=== PATIENT | female | born 1975 | race Caucasian/White ===

== ENCOUNTER 2017-11-19 08:03 | Emergency (ER) | payer OTHER ==
[2017-11-19 08:13] VITALS: RESP 18
[2017-11-19] MEDS ORDERED: PROMETHAZ-COD 6.25-10 MG/5 ML 5 ML CUP PO STA (08:23)
[2017-11-19] MEDS ORDERED: IBUPROFEN 600 MG TAB PO STA (08:23)
--- NOTE | 2017-11-19 08:26 | ED ---
URI HPI - General Chief Complaint: Upper Respiratory Infection Stated Complaint: FEVER, MULTIPLE SYMP Time Seen by Provider: 11/19/17 08:15 Source: patient, RN notes reviewed, old records reviewed Mode of arrival: ambulatory Limitations: no limitations - History of Present Illness Initial Comments: 42-year-old female presents today chief complaint of upper respiratory congestion for the past 4 days. She reports she's had a high fever. She has been alternating Motrin Tylenol taking TheraFlu. Patient reports that she now has a productive cough. She reports it's green-yellow sputum. She denies any wheezing. She is a smoker. Patient states that she's had Motrin at 4 AM. She denies any specific abdominal pain, nausea or. She did have one episode of vomiting earlier today due to her productive cough and sputum. Patient denies any urinary symptoms, vision changes, headache, peripheral paresthesias, back pain. - Related Data Home Medications Medication Instructions Recorded Confirmed Omeprazole 40 mg PO DAILY 11/19/17 11/19/17 Previous Rx's Medication Instructions Recorded Amoxic-Pot Clav 875-125Mg 1 tab PO Q12HR #20 tablet 11/19/17 [Augmentin 875-125] Promethazine/Dextromethorphan 5 ml PO TID #120 ml 11/19/17 [Phenergan DM Syrup] Allergies Allergy/AdvReac Type Severity Reaction Status Date / Time No Known Allergies Allergy Verified 11/19/17 08:32 Review of Systems ROS Statement: Those systems with pertinent positive or pertinent negative responses have been documented in the HPI. ROS Other: All systems not noted in ROS Statement are negative. Past Medical History Past Medical History: No Reported History History of Any Multi-Drug Resistant Organisms: None Reported Past Surgical History: Cholecystectomy, Tonsillectomy Additional Past Surgical History / Comment(s): tubal ligation Past Psychological History: Depression Smoking Status: Current every day smoker Past Alcohol Use History: Occasional Past Drug Use History: None Reported General Exam - General Exam Comments Initial Comments: 42-year-old female. Limitations: no limitations General appearance: alert, in no apparent distress Head exam: Present: atraumatic, normocephalic, normal inspection Eye exam: Present: normal appearance, PERRL, EOMI. Absent: scleral icterus, conjunctival injection, periorbital swelling ENT exam: Present: normal exam, mucous membranes moist. Absent: normal oropharynx (erythematours oropharynx, no exudate), TM's normal bilaterally ( Patient has erythematous scared right TM) Neck exam: Present: normal inspection, full ROM. Absent: tenderness, meningismus, lymphadenopathy Respiratory exam: Present: normal lung sounds bilaterally. Absent: respiratory distress, wheezes, rales, rhonchi, stridor Cardiovascular Exam: Present: regular rate, normal rhythm, normal heart sounds. Absent: systolic murmur, diastolic murmur, rubs, gallop, clicks GI/Abdominal exam: Present: soft, normal bowel sounds. Absent: distended, tenderness, guarding, rebound, rigid Extremities exam: Present: normal inspection, full ROM Back exam: Present: normal inspection, full ROM. Absent: CVA tenderness (L) Neurological exam: Present: alert, oriented X3, CN II-XII intact Psychiatric exam: Present: normal affect, normal mood Skin exam: Present: warm, dry, intact, normal color. Absent: rash Course Vital Signs 11/19/17 11/19/17 11/19/17 08:09 08:45 09:55 Temperature 99.5 F 98.1 F Pulse Rate 99 82 Respiratory 18 18 18 Rate Blood Pressure 123/83 127/63 O2 Sat by Pulse 97 96 Oximetry Medical Decision Making - Medical Decision Making 42-year-old female presents today chief complaint of upper respiratory congestion for the past 4 days. She reports she's had a high fever. She has been alternating Motrin Tylenol taking TheraFlu. Patient reports that she now has a productive cough. She reports it's green-yellow sputum. Patient influenza testing is negative. Lungs are clear, no wheezing. Minimal redness to oropharynx. Paitent has sinus congestion. Patient CXR is normal. Patient informed likely sinusitis upper respiratory infection. Started on augmentin for sinusitis. Dsicussed follow up with PCP and continue OTC medication and supportive measure. Given note for work. - Lab Data Lab Results 11/19/17 Range/Units 08:33 Influenza Type A RNA Not Detected (Not Detectd) Influenza Type B (PCR) Not Detected (Not Detectd) - Radiology Data Radiology results: report reviewed CXR reviewed and normal, no acute abnormalities. Disposition Clinical Impression: Upper respiratory infection Disposition: HOME SELF-CARE Condition: Good Instructions: Upper Respiratory Infection (ED) Additional Instructions: Patient has a follow-up with primary care provider. Return to emergency department if any alarming signs or symptoms occur. Take antibiotic as prescribed. Prescriptions: Amoxic-Pot Clav 875-125Mg [Augmentin 875-125] 1 tab PO Q12HR #20 tablet Promethazine/Dextromethorphan [Phenergan DM Syrup] 5 ml PO TID #120 ml Referrals: Víctor Rosario Jr, DO [Primary Care Provider] - 1-2 days Time of Disposition: 09:44
--- NOTE | 2017-11-19 09:39 | XR ---
EXAMINATION TYPE: XR chest 2V DATE OF EXAM: 11/19/2017 HISTORY: Pain. REFERENCE: Previous study dated 12/06/2012. FINDINGS: The lungs remain clear. Pleural spaces are clear. The heart is not enlarged. IMPRESSION: NORMAL CHEST.
[2017-11-19] MEDS ORDERED: MAG HYDROX/AL HYDROX/SIMETH 30 ML, HYOSCYAMINE ELIXIR 10 ML, CIMETIDINE HCL 300 MG PO STA ×3 (09:49)
[2017-11-19 10:06] VITALS: BP 127/63; PULSE 82; TEMP 98.1
== END 2017-11-19 10:12 | disposition home or self-care (01) ==
LOC: EC 08:03
DX: J06.9 Acute upper respiratory infection, unspecified (principal); F17.200 Nicotine dependence, unspecified, uncomplicated; Z90.89 Acquired absence of other organs; Z79.899 Other long term (current) drug therapy
CPT/HCPCS: 71046; 87502; 99284

== ENCOUNTER 2019-12-27 11:01 | Emergency (ER) | payer OTHER ==
[2019-12-27 11:21] VITALS: RESP 18
--- NOTE | 2019-12-27 12:30 | ED ---
Lower Extremity Injury HPI - General Chief Complaint: Extremity Injury, Lower Stated Complaint: injured ankle Time Seen by Provider: 12/27/19 11:32 Source: patient, RN notes reviewed Mode of arrival: wheelchair Limitations: no limitations - History of Present Illness Initial Comments: 44-year-old female presents emergency Department chief complaint of left foot and ankle pain. Patient states that her foot Wrapped up in her dog states that she fell. She states she wrapped applied ice and take some Motrin today with worsening pain. No prior fractures. Denies any head injury no loss conscious. - Related Data Home Medications Medication Instructions Recorded Confirmed Omeprazole 40 mg PO DAILY 11/19/17 11/19/17 Previous Rx's Medication Instructions Recorded Amoxic-Pot Clav 875-125Mg 1 tab PO Q12HR #20 tablet 11/19/17 [Augmentin 875-125] Promethazine/Dextromethorphan 5 ml PO TID #120 ml 11/19/17 [Phenergan DM Syrup] Allergies Allergy/AdvReac Type Severity Reaction Status Date / Time No Known Allergies Allergy Verified 12/27/19 11:18 Review of Systems ROS Statement: Those systems with pertinent positive or pertinent negative responses have been documented in the HPI. ROS Other: All systems not noted in ROS Statement are negative. Past Medical History Past Medical History: No Reported History History of Any Multi-Drug Resistant Organisms: None Reported Past Surgical History: Cholecystectomy, Tonsillectomy Additional Past Surgical History / Comment(s): tubal ligation Past Psychological History: Depression Smoking Status: Current every day smoker Past Alcohol Use History: Occasional Past Drug Use History: None Reported General Exam Limitations: no limitations General appearance: alert, in no apparent distress Head exam: Present: atraumatic, normocephalic, normal inspection Eye exam: Present: normal appearance, PERRL, EOMI. Absent: scleral icterus, conjunctival injection, periorbital swelling ENT exam: Present: normal exam, normal oropharynx, mucous membranes moist, TM's normal bilaterally Neck exam: Present: normal inspection, full ROM. Absent: tenderness, meningismus, lymphadenopathy Respiratory exam: Present: normal lung sounds bilaterally. Absent: respiratory distress, wheezes, rales, rhonchi, stridor Cardiovascular Exam: Present: regular rate, normal rhythm, normal heart sounds. Absent: systolic murmur, diastolic murmur, rubs, gallop, clicks Extremities exam: Present: other (Left foot, lateral malleoli region there is ecchymosis, swelling and tenderness with palpation neurovascular intact no proximal tib-fib tenderness) Course Vital Signs 12/27/19 11:18 Temperature 97.8 F Pulse Rate 86 Respiratory 18 Rate Blood Pressure 127/88 O2 Sat by Pulse 98 Oximetry Procedures - Orthopedic Splinting/Casting Injury #1 Side: left Lower Extremity Injury Location: short leg, ankle Lower Extremity Immobilizer: posterior splint, synthetic pre-padded splint Medical Decision Making - Medical Decision Making Patient x-ray shows evidence of avulsion fracture. Patient was splinted and will follow-up with orthopedics. Disposition Clinical Impression: Fracture of distal end of left tibia Disposition: HOME SELF-CARE Condition: Stable Instructions (If sedation given, give patient instructions): Ankle Fracture (ED) Additional Instructions: Please return to the Emergency Department if symptoms worsen or any other concerns. Is patient prescribed a controlled substance at d/c from ED?: No Referrals: Víctor Rosario Jr, DO [Primary Care Provider] - 1-2 days Dima Mcintyre MD [Medical Doctor] - 1-2 days Time of Disposition: 13:31
--- NOTE | 2019-12-27 12:48 | XR ---
EXAMINATION TYPE: XR foot complete LT DATE OF EXAM: 12/27/2019 CLINICAL HISTORY: Left foot pain after fall TECHNIQUE: Frontal, lateral, and oblique images of the left foot are obtained. COMPARISON: None FINDINGS: There is no acute fracture/dislocation evident in the left foot. The joint spaces in the left foot appear within normal limits. The overlying soft tissue appears unremarkable. Incidentally noted os naviculare. IMPRESSION: There is no acute fracture or dislocation in the left foot.
--- NOTE | 2019-12-27 12:48 | XR ---
EXAMINATION TYPE: XR ankle complete LT DATE OF EXAM: 12/27/2019 COMPARISON: NONE HISTORY: Pain FINDINGS: Three views of the ankle demonstrate the ankle mortise to be intact and symmetric. There is an avulsi on fracture of the medial malleolus. Soft tissue edema noted. IMPRESSION: 1. Tiny avulsion fracture medial malleolus
[2019-12-27 13:47] VITALS: BP 122/78; PULSE 83; TEMP 97
== END 2019-12-27 13:47 | disposition home or self-care (01) ==
LOC: EC 11:01
DX: S82.302A Unspecified fracture of lower end of left tibia, initial encounter for closed fracture (principal); F17.200 Nicotine dependence, unspecified, uncomplicated; Z90.49 Acquired absence of other specified parts of digestive tract; Z79.899 Other long term (current) drug therapy; W10.9XXA Fall (on) (from) unspecified stairs and steps, initial encounter
CPT/HCPCS: 29515; 99283

== ENCOUNTER → 2021-06-04 | Outpatient (CLI) | payer OTHER ==
--- NOTE | 2021-06-05 11:04 | MM ---
Reason for exam: screening (asymptomatic). Last mammogram was performed 6 years and 11 months ago. History: Family history of breast cancer in maternal cousin at age 52. Physical Findings: A clinical breast exam by your physician is recommended on an annual basis and results should be correlated with mammographic findings. MG Screening Mammo w CAD Bilateral CC and MLO view(s) were taken. Prior study comparison: June 24, 2014, bilateral MG screening mammo w CAD. There are scattered fibroglandular densities. ASSESSMENT: Negative, BI-RAD 1 RECOMMENDATION: Routine screening mammogram of both breasts in 1 year.
== END | disposition home or self-care (01) ==
LOC: RADMAMWWP 09:18
PROVIDERS: ATTEND Family Medicine
DX: Z12.31 Encounter for screening mammogram for malignant neoplasm of breast (principal); Z80.3 Family history of malignant neoplasm of breast
CPT/HCPCS: 77067

== ENCOUNTER 2022-09-03 17:33 | Emergency (ER) | payer OTHER ==
[2022-09-03 17:44] VITALS: BP 130/65; PULSE 83; RESP 16; TEMP 98.1
[2022-09-03] MEDS ORDERED: DEXAMETHASONE SOD PHOSPHATE 10 MG/ML 1 ML VIAL IM STA (17:58)
--- NOTE | 2022-09-03 18:05 | ED ---
General Adult HPI - General Chief complaint: Allergic Reaction Stated complaint: hives, facial swelling Time Seen by Provider: 09/03/22 17:53 Source: patient, RN notes reviewed, old records reviewed Mode of arrival: ambulatory Limitations: no limitations - History of Present Illness Initial comments: 47-year-old female with 24 hours of itchy raised rash and lip swelling. Patient states she had coronavirus about 2 weeks ago. She has no difficulty breathing. No fever. No cough. No vomiting. Patient denies any new medications, no new foods, no attributable new cause of this rash. - Related Data Home Medications Medication Instructions Recorded Confirmed Omeprazole 40 mg PO DAILY 11/19/17 11/19/17 Previous Rx's Medication Instructions Recorded Amoxic-Pot Clav 875-125Mg 1 tab PO Q12HR #20 tablet 11/19/17 [Augmentin 875-125] Promethazine/Dextromethorphan 5 ml PO TID #120 ml 11/19/17 [Phenergan DM Syrup] diphenhydrAMINE [Benadryl] 25 mg PO TID PRN #21 capsule 09/03/22 methylPREDNISolone Dose Pack 4 mg PO DIRECTED #21 packet 09/03/22 [Medrol Dose Pack] Allergies Allergy/AdvReac Type Severity Reaction Status Date / Time No Known Allergies Allergy Verified 12/27/19 11:18 Review of Systems ROS Statement: Those systems with pertinent positive or pertinent negative responses have been documented in the HPI. ROS Other: All systems not noted in ROS Statement are negative. Past Medical History Past Medical History: No Reported History History of Any Multi-Drug Resistant Organisms: None Reported Past Surgical History: Cholecystectomy, Tonsillectomy Additional Past Surgical History / Comment(s): tubal ligation Past Psychological History: Depression Past Alcohol Use History: Occasional Past Drug Use History: None Reported General Exam Limitations: no limitations General appearance: alert, in no apparent distress Head exam: Present: atraumatic, normocephalic Eye exam: Present: normal appearance, PERRL ENT exam: Present: normal oropharynx, mucous membranes moist, other (mild soft tissue swelling of the upper and lower lips. No tongue swelling, no uvular swelling normal oropharynx) Respiratory exam: Present: normal lung sounds bilaterally. Absent: respiratory distress Cardiovascular Exam: Present: regular rate, normal rhythm GI/Abdominal exam: Absent: distended, tenderness Extremities exam: Present: normal inspection, normal capillary refill Neurological exam: Present: alert, oriented X3, CN II-XII intact. Absent: motor sensory deficit Skin exam: Present: warm, dry, urticaria (diffuse urticarial rash) Course Vital Signs 09/03/22 17:42 Temperature 98.1 F Pulse Rate 83 Respiratory 16 Rate Blood Pressure 130/65 O2 Sat by Pulse 98 Oximetry Medical Decision Making - Medical Decision Making 47-year-old female with urticarial rash and mild lip swelling. No tongue swelling, no uvular swelling. She is not currently on any medications. She is well-appearing with clear lungs, no respirator distress, no vomiting. She is started on Decadron and will be prescribed Medrol Dosepak as well as Benadryl. She will monitor her symptoms closely and return with any worsening or changing symptoms. Disposition Clinical Impression: Allergic reaction, Urticaria Disposition: HOME SELF-CARE Condition: Good Instructions (If sedation given, give patient instructions): Urticaria (ED) Prescriptions: diphenhydrAMINE [Benadryl] 25 mg PO TID PRN #21 capsule PRN Reason: Rash methylPREDNISolone Dose Pack [Medrol Dose Pack] 4 mg PO DIRECTED #21 packet Is patient prescribed a controlled substance at d/c from ED?: No Referrals: Víctor Rosario Jr, DO [Primary Care Provider] - 1-2 days Time of Disposition: 18:04
== END 2022-09-03 18:48 | disposition home or self-care (01) ==
LOC: EC 17:33
DX: L50.0 Allergic urticaria (principal)
CPT/HCPCS: 99283; J1100

== ENCOUNTER 2024-04-24 08:31 | Emergency (ER) | payer OTHER ==
--- NOTE | 2024-04-24 08:48 | ED ---
General Adult HPI - General Chief complaint: Back Pain/Injury Stated complaint: fall-rib pain Time Seen by Provider: 04/24/24 08:36 Source: patient, family, RN notes reviewed Mode of arrival: ambulatory Limitations: no limitations - History of Present Illness Initial comments: Patient is a 49-year-old female present to the emergency department with left- sided rib pain. Patient did have a fall 1 week ago. Patient has had discomfort since that time. Patient denies dyspnea. Patient is able to breathe normally. Patient states discomfort is increased with movement. Discomfort is left lower ribs. No midline back pain. No head injury or loss of consciousness. No neck pain. No abdominal pain. Patient states she slipped on a step and fell back wards onto the step. - Related Data Home Medications Medication Instructions Recorded Confirmed Omeprazole 40 mg PO DAILY 11/19/17 11/19/17 Previous Rx's Medication Instructions Recorded Amoxic-Pot Clav 875-125Mg 1 tab PO Q12HR #20 tablet 11/19/17 [Augmentin 875-125] Promethazine/Dextromethorphan 5 ml PO TID #120 ml 11/19/17 [Phenergan DM Syrup] diphenhydrAMINE [Benadryl] 25 mg PO TID PRN #21 capsule 09/03/22 methylPREDNISolone Dose Pack 4 mg PO DIRECTED #21 packet 09/03/22 [Medrol Dose Pack] Cyclobenzaprine [Flexeril] 10 mg PO TID PRN #12 tablet 04/24/24 Ibuprofen [Motrin] 600 mg PO Q6HR PRN #20 tab 04/24/24 Allergies Allergy/AdvReac Type Severity Reaction Status Date / Time No Known Allergies Allergy Verified 04/24/24 08:35 Review of Systems ROS Statement: Those systems with pertinent positive or pertinent negative responses have been documented in the HPI. ROS Other: All systems not noted in ROS Statement are negative. Constitutional: Denies: fever Eyes: Denies: eye pain ENT: Denies: ear pain Respiratory: Reports: as per HPI. Denies: dyspnea Endocrine: Denies: fatigue Gastrointestinal: Denies: abdominal pain Past Medical History Past Medical History: No Reported History History of Any Multi-Drug Resistant Organisms: None Reported Past Surgical History: Cholecystectomy, Tonsillectomy Additional Past Surgical History / Comment(s): tubal ligation Past Psychological History: Depression Smoking Status: Current every day smoker Past Alcohol Use History: Daily Past Drug Use History: Marijuana General Exam Limitations: no limitations General appearance: alert Head exam: Present: normocephalic Eye exam: Present: normal appearance Neck exam: Present: normal inspection. Absent: tenderness Respiratory exam: Present: normal lung sounds bilaterally, chest wall tenderness (Left posterior lateral lower ribs) Cardiovascular Exam: Present: regular rate, normal rhythm GI/Abdominal exam: Present: soft. Absent: tenderness Extremities exam: Present: normal inspection Back exam: Present: tenderness (Left lateral lower posterior rib). Absent: vertebral tenderness Neurological exam: Present: alert Psychiatric exam: Present: normal affect, normal mood Skin exam: Present: normal color Course Vital Signs 04/24/24 04/24/24 08:32 09:35 Temperature 97.4 F L 98.2 F Pulse Rate 80 71 Respiratory 16 18 Rate Blood Pressure 186/100 177/90 O2 Sat by Pulse 96 99 Oximetry Medical Decision Making - Medical Decision Making Was pt. sent in by a medical professional or institution (, PA, [employer], urgent care, hospital, or [facility]...) When possible be specific @ -No Did you speak to anyone other than the patient for history (EMS, parent, family, police, friend...)? What history was obtained from this source @ -No Did you review nursing and triage notes (agree or disagree)? Why? @ -I reviewed and agree with nursing and triage notes Were old charts reviewed (outside hosp., previous admission, EMS record, old EKG, old radiological studies, urgent care reports/EKG's, [facility] records)? Report findings @ -No old charts were reviewed Differential Diagnosis (chest pain, altered mental status, abdominal pain women, abdominal pain men, vaginal bleeding, weakness, fever, dyspnea, syncope, headache, dizziness, GI bleed, back pain, seizure, CVA, palpatations, mental health, musculoskeletal)? @ -Differential Back Pain: Strain, zoster, cauda equina syndrome, epidural abscess, vertebral osteomyelitis, discitis, fracture, subluxation, disc herniation, DJD, spinal stenosis, dissection, AAA, pancreatitis, peptic ulcer disease, pyelonephritis, kidney stone, this is not meant to be an all-inclusive list. EKG interpreted by me (3pts min.). @ -As above X-rays interpreted by me (1pt min.). @ -Chest x-ray and left-sided rib x-rays do not reveal obvious fracture or pneumothorax CT interpreted by me (1pt min.). @ -None done U/S interpreted by me (1pt. min.). @ -None done What testing was considered but not performed or refused? (CT, X-rays, U/S, labs)? Why? @ -None What meds were considered but not given or refused? Why? @ -None Did you discuss the management of the patient with other professionals (professionals i.e. DrKyrie, PA, [employer], lab, RT, psych nurse, vp digital marketing social media and crm, mesmerist, teacher, electronic intelligence officer, casework specialist)? Give summary @ -No Was smoking cessation discussed for >3mins.? @ -No Was critical care preformed (if so, how long)? @ -No Were there social determinants of health that impacted care today? How? (Homelessness, low income, unemployed, alcoholism, drug addiction, transportation, low edu. Level, literacy, decrease access to med. care, longterm, rehab)? @ -No Was there de-escalation of care discussed even if they declined (Discuss DNR or withdrawal of care, Hospice)? DNR status @ -No What co-morbidities impacted this encounter? (DM, HTN, Smoking, COPD, CAD, Cancer, CVA, ARF, Chemo, Hep., AIDS, mental health diagnosis, sleep apnea, morbid obesity)? @ -None Was patient admitted / discharged? Hospital course, mention meds given and route, prescriptions, significant lab abnormalities, going to OR and other pertinent info. @ -Patient reevaluated and somewhat improved. Patient and family are updated on results and need for follow-up. Undiagnosed new problem with uncertain prognosis? @ -No Drug Therapy requiring intensive monitoring for toxicity (Heparin, Nitro, Insulin, Cardizem)? @ -No Were any procedures done? @ -No Diagnosis/symptom? @ -Rib contusion Acute, or Chronic, or Acute on Chronic? @ -Acute Uncomplicated (without systemic symptoms) or Complicated (systemic symptoms)? @ -Default Side effects of treatment? @ -No Exacerbation, Progression, or Severe Exacerbation? @ -No Poses a threat to life or bodily function? How? (Chest pain, [place], [place], pneumonia, PE, COPD, DKA, ARF, appy, cholecystitis, CVA, Diverticulitis, Homicidal, Suicidal, threat to staff... and all critical care pts) @ -No Disposition Clinical Impression: Rib contusion Disposition: HOME SELF-CARE Condition: Stable Instructions (If sedation given, give patient instructions): Rib Contusion (ED) Additional Instructions: Prescription sent to pharmacy. Please do follow-up with your primary care physician in the next couple of days for recheck. Return for difficulty breathing, worsening or changing symptoms or other concerns. Prescriptions: Cyclobenzaprine [Flexeril] 10 mg PO TID PRN #12 tablet PRN Reason: Pain Ibuprofen [Motrin] 600 mg PO Q6HR PRN #20 tab PRN Reason: Pain Is patient prescribed a controlled substance at d/c from ED?: No Referrals: Víctor Rosario Jr, DO [Primary Care Provider] - 1-2 days Time of Disposition: 09:47
[2024-04-24] MEDS: KETOROLAC 15 MG/ML 1 ML VIAL IM STA (08:50)
[2024-04-24] MEDS: HYDROmorphone 1 MG/ML 1 ML SYRINGE IM STA (08:53)
--- NOTE | 2024-04-24 09:31 | XR ---
EXAMINATION TYPE: XR ribs LT w pa chest xray DATE OF EXAM: 04/24/2024 COMPARISON: NONE HISTORY: Pain TECHNIQUE: Single view of the chest 4 views of the ribs are submitted. FINDINGS: The lungs are clear. No Evidence for pneumothorax. No evidence for focal contusion. Medi astinal structures are midline. Evaluation of the ribs fails to demonstrate evidence for displaced r ib fracture or secondary sign of rib fracture. IMPRESSION: Negative study
[2024-04-24 09:42] VITALS: PULSE 71; RESP 18; TEMP 98.2
[2024-04-24] MEDS: HYDROmorphone 0.5 MG/0.5 ML SYRINGE IM STA (09:55)
[2024-04-24 10:08] VITALS: BP 162/89
== END 2024-04-24 10:56 | disposition home or self-care (01) ==
LOC: EC 08:31
DX: S20.219A Contusion of unspecified front wall of thorax, initial encounter (principal); F17.200 Nicotine dependence, unspecified, uncomplicated; Z90.49 Acquired absence of other specified parts of digestive tract; W10.9XXA Fall (on) (from) unspecified stairs and steps, initial encounter
CPT/HCPCS: 71101; 99283; 96372 ×2; J1885; J1170